=== PATIENT | male | born 1945 | race Caucasian/White ===

== ENCOUNTER 2017-04-06 10:02 | Emergency (ER) | payer OTHER, MEDICARE ==
[2017-04-06] MEDS ORDERED: SODIUM CHLORIDE 0.9% FLUSH 10 ML SOL IV PRN (10:08)
[2017-04-06] MEDS ORDERED: MORPHINE SULFATE 10 MG/ML SOL IV PRN (10:08)
[2017-04-06] MEDS ORDERED: ASPIRIN 81 MG CHEWABLE CTB PO STA (10:08)
[2017-04-06] MEDS ORDERED: NITROGLYCERIN 0.4 MG TAB SL PRN (10:08)
[2017-04-06] MEDS ORDERED: ASPIRIN 81 MG CHEWABLE CTB ONE (10:09)
[2017-04-06] MEDS ORDERED: NITROGLYCERIN 0.4 MG TAB SL ONE (10:09)
[2017-04-06 10:15] LABS: BASOPHILS % (AUTO) 1 % (0-3); EOSINOPHILS % (AUTO) 1 % (0-9); HEMATOCRIT 41 % (39-53); MEAN CORPUSCULAR HGB CONC 35.2 gm/dl (32.0-36.0); MEAN CORPUSCULAR VOLUME 83 fL (80-100); MONOCYTES % (AUTO) 7.4 % (0-12); NEUTROPHILS % (AUTO) 53.9 % (37-80)
[2017-04-06] MEDS ORDERED: SODIUM CHLORIDE 0.9% 1000ML 1,000 ML IV ONE (10:27)
[2017-04-06 10:35] LABS: CALCIUM 9.4 mg/dl (8.5-10.1); POTASSIUM 4.1 mMol/L (3.5-5.1)
[2017-04-06 10:50] VITALS: BP 135/73; PULSE 64; RESP 17; TEMP 96.4; O2SAT 99
== END 2017-04-06 11:33 | disposition home or self-care (01) | DRG 313 ==
LOC: ED 10:02
DX: R07.89 Other chest pain (principal)
CPT/HCPCS: 71010; 80048; 82550; 84484; 85025; 85610; 85730; 93005; 99285